=== PATIENT | male | born 1965 | race Caucasian/White ===

== ENCOUNTER 2019-02-11 11:09 | Emergency (ER) | payer MEDICAID ==
[~2019-02-11] VITALS: Ht 167.6 cm; Wt 133.8 kg
[2019-02-11] MEDS ORDERED: TACR1CAP PO (11:36)
[2019-02-11] MEDS ORDERED: ASPI-605 PO (11:36)
[2019-02-11] MEDS ORDERED: FURO-152 PO (11:36)
[2019-02-11] MEDS ORDERED: ALBU8.5H8 INH (11:36)
[2019-02-11] MEDS ORDERED: MYCO500T5 PO (11:36)
[2019-02-11] MEDS ORDERED: NICO1PAT35 TD (11:36)
[2019-02-11] MEDS ORDERED: FAMO20TA8 PO (11:36)
[2019-02-11] MEDS ORDERED: PRED2.5T PO (11:36)
[2019-02-11] MEDS ORDERED: IPRA12.9 INH (11:36)
[2019-02-11] MEDS ORDERED: TERA2CAP4 PO (11:36)
[2019-02-11] MEDS ORDERED: ATOR10TA PO (11:36)
[2019-02-11] MEDS ORDERED: DOCU-141 PO (11:36)
[2019-02-11] MEDS ORDERED: METO100T14 PO (11:36)
--- NOTE | 2019-02-11 13:08 | NUR ---
Patient does not wish to proceed with medical care recommended by Dr. BUSH. Patient given information related to possible complications, up to and including , which could occur as a result of leaving the hospital at this time. Patient verbalizes understanding of risks involved due to leaving against medical advice. Patient has signed AMA form.
== END 2019-02-11 13:10 | disposition left against medical advice (07) ==
LOC: ER 11:09
DX: S86.911A Strain of unspecified muscle(s) and tendon(s) at lower leg level, right leg, initial encounter (principal); R42 Dizziness and giddiness; R06.02 Shortness of breath; I50.9 Heart failure, unspecified; J45.909 Unspecified asthma, uncomplicated; K21.9 Gastro-esophageal reflux disease without esophagitis; Z79.899 Other long term (current) drug therapy; Z79.82 Long term (current) use of aspirin; W18.39XA Other fall on same level, initial encounter; Y93.89 Activity, other specified; Y92.89 Other specified places as the place of occurrence of the external cause; Y99.8 Other external cause status
CPT/HCPCS: 71045; 73562; 93005; A4663

== ENCOUNTER 2019-02-28 15:36 | Emergency (ER) | payer MEDICARE, MEDICAID ==
[~2019-02-28] VITALS: Ht 165.1 cm; Wt 131.5 kg
[~2019-02-28 15:36] MED LIST: ALBU8.5H8 INH; ASPI-605 PO; ATOR10TA PO; DOCU-141 PO; FAMO20TA8 PO; FURO-152 PO; IPRA12.9 INH; METO100T14 PO; MYCO500T5 PO; PRED2.5T PO; TACR1CAP PO; TERA2CAP4 PO
[2019-02-28] MEDS ORDERED: IV NORMAL SALINE 1000 ML BAG IV ONE (16:00)
[2019-02-28] MEDS ORDERED: VANCOMYCIN IV 1,000 MG in IV DEXTROSE 5% 250 ML IV ONE (16:00)
[2019-02-28] MEDS ORDERED: VANCOMYCIN IV 200 ML ONE (16:02)
--- NOTE | 2019-02-28 17:11 | NUR ---
Patient discharged to home in stable conditon. Written and verbal after care instructions given. Patient verbalizes understanding of instructions.
--- NOTE | 2019-02-28 17:11 | NUR ---
IV removed. Catheter intact and site benign. Pressure and 4x4 gauze applied to site. No bleeding noted.
== END 2019-02-28 17:18 | disposition home or self-care (01) ==
LOC: ER 15:39
DX: L03.115 Cellulitis of right lower limb (principal); I50.9 Heart failure, unspecified; J45.909 Unspecified asthma, uncomplicated; K21.9 Gastro-esophageal reflux disease without esophagitis; Z79.82 Long term (current) use of aspirin; Z79.899 Other long term (current) drug therapy
CPT/HCPCS: 96365; 99283; J3370; A4663; J7030